=== PATIENT | male | born 1995 | race Caucasian/White ===

== ENCOUNTER 2016-11-07 23:31 | Emergency (ER) | payer SELFPAY ==
[~2016-11-07] VITALS: Ht 172.7 cm; Wt 56.8 kg
[2016-11-07 23:44] VITALS: Ht 172.7 cm; Wt 56.8 kg
== END 2016-11-08 05:52 | disposition left against medical advice (07) ==
LOC: FTE 23:31
DX: Z53.21 Procedure and treatment not carried out due to patient leaving prior to being seen by health care provider (principal)

== ENCOUNTER 2017-04-09 05:08 | Emergency (ER) | payer MEDICAID ==
[~2017-04-09] VITALS: Ht 167.6 cm; Wt 70.0 kg
[2017-04-09 05:10] VITALS: Ht 167.6 cm; Wt 70.0 kg
[2017-04-09] MEDS ORDERED: NAPR-260 PO (05:23)
[2017-04-09] MEDS ORDERED: ACET325T33 PO (05:23)
--- NOTE | 2017-04-09 05:26 | ERD ---
ER Documentation Chief Complaint Chief Complaint bib self, cc: sore throat, fever, has been taking amoxicillin x 2 days HPI This is a 21-year-old male presents to the ED complaining of moderate sore throat, body aches, fever for 2 days. Patient states he took amox two days ago, he states he had it laying around. He denies taking any other medications today. Denies nausea, vomiting, diarrhea. Denies cough ROS All systems reviewed and are negative except as per history of present illness. Medications Home Meds Active Scripts Naproxen* (Naprosyn*) 500 Mg Tablet, 500 MG PO BID Y for PAIN AND/OR INFLAMMATION, #30 TAB Prov:ELOISA ANDUJAR PA-C 04/09/17 Acetaminophen* (Tylenol*) 325 Mg Tablet, 2 TAB PO Q4 Y for PAIN AND OR ELEVATED TEMP, #30 TAB Prov:ELOISA ANDUJAR PA-C 04/09/17 Allergies Allergies: Coded Allergies: No Known Allergy (Unverified , 04/09/17) Physical Exam Vitals Vital Signs Date Time Temp Pulse Resp B/P Pulse Ox O2 Delivery O2 Flow Rate FiO2 04/09/17 05:10 98.5 79 18 128/80 100 Physical Exam GENERAL: well-developed/well-nourished, in no apparent distress, non-toxic appearing HEAD: NC/AT, no swelling noted in frontal or maxillary areas EARS: bilateral tympanic membrane is intact without erythema or effusion NARES: nares patent, rhinorrhea and congested THROAT: oropharynx nonthematous without exudates, no tonsil enlargement EYES: Conjunctiva normal NECK: Supple, no lymphadenopathy PULM: CTA bilaterally, no rales, rhonchi, or wheezing heard CV: Normal S1S2, RRR, good capillary refill GI: Soft, non-distended, normal bowel sounds, non-tender BACK: No midline tenderness, no masses EXT No clubbing, cyanosis, or edema NEURO: Alert and Orientated SKIN: Intact, normal turgor PSYCH: Normal mood and mentation Procedures/MDM This is a 21-year-old male presenting to the emergency department complaining of a sore throat and body aches the past days. On examination patient is afebrile, there was no evidence of strep pharyngitis or tonsillar exudates. No evidence of lymphadenopathy. Patient appears well, there is no evidence of peritonsillar retropharyngeal abscess. Patient stable to be discharged home with prescription for ibuprofen and Tylenol. Discussed return to the ER for any worsening signs or symptoms. He understands and agrees with plan Departure Diagnosis: Primary Impression: Viral URI Condition: Stable Patient Instructions: Uri, Viral, No Abx (Adult) Additional Instructions: Visite a garcia laura mcnair para un EXAMEN.Regrese a estas instalaciones si no se mejora raul esperbamos o raul le dijimos. [place] toda la medicina magda y raul se le indic. Regrese a estas instalaciones si no se mejora raul esperbamos o raul le dijimos. ELOISA ANDUJAR PA-C Apr 09, 2017 05:26
== END 2017-04-09 05:29 | disposition home or self-care (01) ==
LOC: FTE 05:08
DX: J06.9 Acute upper respiratory infection, unspecified (principal)
CPT/HCPCS: 99283